=== PATIENT | female | born 1950 | race Caucasian/White ===

== ENCOUNTER 2025-10-09 07:18 | Day surgery (SDC) | payer MEDICARE, MEDICAID, SELFPAY ==
[2025-10-09] VITALS (8 sets, daily range): BP systolic 119–135; BP diastolic 58–101; PULSE 62–83; RESP 16; TEMP 36.4–37.1; O2SAT 97–98; BMI 38.9
--- OUTSIDE RECORDS SUMMARY | 2025-10-09 07:23 | XMS RPT_ITS | CCD ---
Author Organization [facility] Inform ion Partnership [facility] Care Team Providers Care Director Of Recruitment And Admissions Name Role Phone OFE , DR JULIAN Negron Primary Care Physician OFE , DR UJLIAN Negron Attending Unavailabl e OFE DO, DR JULIAN Negron Primary Care Unavailabl e Ofe DO, Julian Ferrell Primary Care Provider ADEEL GOLDSTEIN Referring Unavailable OFE, JULIAN FERRELL Primary Care Unavailable OFE, JULIAN FERRELL Primary Care Unavailable ANDREEA PARADA, DR ADHIKARI Attending Unavailabl e OFE DO, DR JULIAN Negron Primary Care Unavailabl e OFE DO, DR JULIAN Negron Primary Care Unavailabl e OFE DO, DR JULIAN Negron Attending [facility], [facility] Referring Unavailable [facility], [facility] Primary Care Unavailable Patricia Bridges Attending Unavailable Medications Current Medications Medication Drug Class(es) Dates Sig (Normalized) Sig (Original) cyclobenzaprine hydrochloride 10 mg oral tablet (2 sources) Muscle Relaxant Start: 12-06-2015 take 1 tablet by mouth every eight hours as needed cyclobenzaprine (FLEXERIL) 10 mg tablet Take 1 tablet by mouth three times daily as needed for Muscle Spasm. 20 tablet 0 12/06/2015 Active doxycycline monohydrate 100 mg oral tablet (1 source) Tetracycline-class Drug Start: 09-05-2024 End: 09-12-2024 take 1 tablet by mouth twice daily doxycycline monohydrate 100 mg tablet Indications: Sinobronchitis , Exposure to pneumonia Take 1 tablet by mouth two times a day for 7 days. 14 tablet 09/05/2024 09/12/2024 Active Eye Multivitamin (1 source) Start: 01-13-2025 Eye Multivitamin Oral, qDay, 0 Refill(s) Start Date: 01/13/25 Status: Ordered Repeat number: 1 ibuprofen 600 mg oral tablet (5 sources) Nonsteroidal Anti-inflammatory Drug Start: 12-31-2017 ibuprofen 600 mg oral tablet Dose : 600 mg = 1 tab(s), Oral, TID, PRN as needed for pain, # 30 tab(s), 0 Refill(s) Start Date: 12/31/17 Status: Ordered meloxicam 15 mg oral tablet (1 source) Nonsteroidal Anti-inflammatory Drug Start: 01-13-2025 meloxicam 15 mg oral tablet Dose : 15 mg = 1 tab(s), Oral, qDay, Take with food/milk, # 30 tab(s), 5 Refill(s), Pharmacy: [id number], Osteoarthritis of left knee, 153, cm, 01/13/25 14:02:00 EDT, Height, kg, 01/13/25 14:02:00 EDT, Dosing Weight Start Date: 01/13/25 Status: Ordered Quantity: 30.0 Unit: tab(s) Repeat number: 6 Indications: Unilateral primary osteoarthritis, left knee; Multivitamin preparation (5 sources) Start: 10-08-2020 take 1 tablet by mouth once daily Multivitamin Dose = 1 tab(s), Oral, Daily, 0 Refill(s) Start Date: 10/08/20 Status: Ordered ofloxacin 3 mg/ml ophthalmic solution (2 sources) Quinolone Antimicrobial Start: 08-23-2024 take 1 drop(s) into the eye(s) four times daily ofloxacin (OCUFLOX) 0.3 % ophthalmic solution Use 1 Drop in the left eye four times daily. 08/23/2024 Active omeprazole 40 mg delayed release oral capsule (7 sources) Proton Pump Inhibitor Start: 01-13-2025 omeprazole 40 mg oral delayed release capsule Dose : 40 mg = 1 cap(s), Oral, qDay, # 30 cap(s), 5 Refill(s), Pharmacy: [id number], GERD (gastroesophageal reflux disease), 153, cm, 01/13/25 14:02:00 EDT, Height, kg, 01/13/25 14:02:00 EDT, Dosing Weight Start Date: 01/13/25 Status: Ordered Quantity: 30.0 Unit: cap(s) Repeat number: 6 Indications: Gastro-esophageal reflux disease without esophagitis; Start: 10-12-2022 omeprazole 20 mg oral delayed release capsule Dose : 20 mg = 1 cap(s), Oral, qDay, # 30 cap(s), 11 Refill(s), [facility]acy: [id number], 155, cm, 10/12/22 8:33:00 EST, Height, kg, 10/12/22 8:33:00 EST, Dosing Weight Start Date: 10/12/22 Status: Ordered Start: 04-14-2021 omeprazole 20 mg oral delayed release capsule Dose : 20 mg = 1 cap(s), Oral, qDay, # 30 cap(s), 11 Refill(s), Pharmacy: [id number], 156, cm, 04/14/21 14:47:00 EDT, Height, kg, 04/14/21 14:47:00 EDT, Dosing Weight Start Date: 04/14/21 Status: Ordered take 1 capsule by mo [facility] once daily Omeprazole 40 mg capsule Take 40 mg by mouth once daily. Active oxybutynin chloride 5 mg oral tablet (3 sources) Cholinergic Muscarinic Antagonist Start: 01-13-2025 oxybutynin 5 mg or al tablet Dose : 5 mg = 1 tab(s), Oral, Daily, # 30 tab(s), 5 Refill(s), Pharmacy: [id number], Urinary incontinence, mixed, 153, cm, 01/13/25 14:02:00 EDT, Height, kg, 01/13/25 14:02:00 EDT, Dosing Weight Start Date: 01/13/25 Status: Ordered Quantity: 30.0 Unit: tab(s) Repeat number: 6 Indications: Mixed incontinence; Start: 08-10-2024 take 1 tablet by jose once daily oxybutynin (DITROPAN) 5 mg tablet Take 5 mg by mouth once daily. 08/10/2024 Active Completed/Discontinued Medications Medication Drug Class(es) Dates Sig (Normalized) Sig (Original) [id number] 200 actuat albuterol 0.09 mg/actuat metered dose inhaler (1 source) beta2-Adrenergic Agonist Start: 07-09-2015 End: 09-05-2024 take 2 puff(s) by inhalation every four hours as needed for wheezing albuterol HFA (PROAIR HFA) 90 mcg/actuation inhaler Inhale 2 Puffs as instructed every 4 hours as needed for Wheezing/Shortness of Breath. 1 Inhaler 3 07/09/2015 09/05/2024 Discontinued (Other) Beclomethasone (1 source) Corticosteroid Start: 07-09-2015 End: 09-05-2024 take 2 puff(s) by inhalation twice daily beclomethasone (QVAR) 40 mcg/actuation inhaler Inhale 2 Puffs as instructed twice daily. 1 Inhaler 2 07/09/2015 09/05/2024 Discontinued (Other) fluticasone proprionate NASAL 50 mcg/ spray (1 source) Start: 04-14-2021 End: 08-12-2021 take 1 dose nasal route once daily fluticasone proprionate NASAL 50 mcg/ spray Dose = 1 spray(s), Nostril, each, qDay, # 16 gram(s), 3 Refill(s), Pharmacy: [facility], 156, cm, 04/14/21 14:47:00 EDT, Height, kg, 04/14/21 14:47:00 EDT, Dosing Weight Start Date: 04/14/21 Stop Date: 08/12/21 Status: Ordered Problems Problem Classification Problem Date Documented Date Episodic/Chronic Diabetes mellitus without complication (6 sources) Hyperglycemia 03-02-2020 Episodic Disorders of lipid metabolism (6 sources) Pure hypercholesterolemia 03-02-2020 Chroni c Esophageal disorders (7 sources) Gastroesophageal reflux disease; Translations: [Gastro-esophageal reflux disease without esophagitis] Onset: 09-05-2002-14-2020 Chronic Genitourinary symptoms and ill-defined conditions (6 sources) Mixed urinary incontinence 09-03-2020 Chronic Immunizations and screening for infectious disease (1 source) Contact with and (suspected) exposure to other communicable diseases; Translations: [Contact with or exposure to other communicable diseases] 09-05-2024 Episodic Nausea and vomiting (1 source) Nausea with vomiting, unspecified; Translations: [Nausea with vomiting, unspecified] Onset: 09-05-20 Episodic Osteoarthritis (1 source) Osteoarthritis of left knee joint 07-10-2024 Chronic Other circulatory disease (1 source) Wheeze - rhonchi; Translations: [Other specified symptoms and signs involving the circulatory and respiratory systems] 09-05-2024 Episodic Other gastrointestinal disorders (1 source) Abdominal distension (gaseous); Translations: [Abdominal distension (gaseous)] Onset: 09-05-20 Episodic Other lower respiratory disease (3 sources) Restrictive lung disease 11-16-2022 Episodi c Other nutritional; endocrine; and metabolic disorders (3 sources) Body mass index 40+ - severely obese; Translations: [Morbid (severe) obesity due to excess calories] Onset: 06-16-2011-01-2021 Chronic Other nutritional; endocrine; and metabolic disorders (1 source) Morbid obesity 07-10-2024 Chronic Other upper respiratory infections (1 source) Chronic sinusitis; Translations: [Chronic sinusitis, unspecified] 09-05-2024 Chronic Residual codes; unclassified (1 source) Early satiety; Translations: [Early satiety] Onset: 09-05-20 Episodic Results Test Name Value Interpretation Reference Range Facility Gastroenterology Visit Repor ton 09-05-2025 Gastroenterology Visit Report [facility] [address] [place] [address] OFFICE VISIT Date of Service: 09/05/25 MR#: [id number] Acct: [id number] Name: SHA MITCHELL Rep #: [id number] : 1950 Provider: ZAINAB De Jesus Age/Sex: 74/F Location: [facility] Status: Signed Intake Vital Signs 11/29/16 12:55 Height 5 ft 1 in Intake Visit Reasons: Gastroesophageal reflux disease (GERD) Chief Complaint: GERD Allergies No Known Allergies Allergy (Verified 09/05/25 10:23) Medications ???Medication ???Instructions ???Recorded ???Confirmed ???Type meloxicam 15 mg tablet 15 mg PO QDAY 08/07/25 09/05/25 Hi story omeprazole 40 mg capsule,delayed 40 mg PO QDAY 08/07/25 09/05/25 Hi story release Have you fallen in the past year?: No PFSH Medical History Urinary incontinence, mixed Former smoker Osteoarthritis of left knee Morbid obesity Restrictive lung disease GERD (gastroesophageal reflux disease) Family History Maternal Grandmother Diabetes Father Heart disease Social History Smoking Status: Former smoker quit date: 03/02/20 HPI HPI Chief Complaint: GERD Details: SHA MITCHELL, is a 74 F who presents to the office today for establishment. Patient referred from her primary care provider due to worsening GERD symptoms over the past month. Patient has a long history of GERD and reflux and has been on omeprazole for over 10 years. Last EGD was over 10 years ago. Over the past month she has had heartburn after eating and nausea in the mornings. She is vomiting at least once per week. She has epigastric pain, early satiety and bloating. Over the last 6 months due to lack of appetite she has lost about 20 pounds without trying. Patient recently discontinued meloxicam after being on it for a year due to joint pain. She denies black or tarry stool. No past medical history of GI bleeding. She denies any recent changes in her bowel habits. When she was taking oxybutynin for urinary incontinence she was more constipated but this has resolved. Last colonoscopy was over 10 years ago at the [facility]. She denies family history of colon cancer. She did a Cologuard test about a month ago which was negative. ROS Const Constitutional: No fatigue, fever(s) or weight change ENT ENT: No difficulty swallowing Gastro GI: Positive for bloating, change in bowel habits, heartburn, excessive flatus and nausea/dyspepsia; No abdominal pain, belching, change in stool character, coffee ground emesis, constipation, cramping, diarrhea, difficulty swallowing, feeling full early, incontinent of stools, Vomiting blood/hematemesis, Blood in stool, loose stools, Black,tarry stools, pain with swallowing, vomiting or other Musc Musculoskeletal: Positive for joint pain, Arthritis, sciatica and leg pain at night Skin Skin: No yellowing of the eye or itchy eyes Psych Psychiatric: No anxiety and No depression Endo Endocrine: No fatigue or weight change Aller/Imm Allergy/Immunologic: No itchy eyes Eb/Lymp Hematologic/Lymphatic: No easy bleeding or easy bruising Exam Const General: cooperative, healthy appearing and comfortable Nutritional Appearance: overweight Orientation: alert HENMT Head: normal to inspection Eyes General: appearance normal, both eyes and all related structures Neck Neck: normal visual inspection Chest Chest palpation inspection: normal inspection of the chest Resp Effort Inspection: normal respiratory effort Cardio Rate: regular rate Rhythm: regular rhythm GI Inspection: normal to inspection Auscultation: normal bowel sounds Palpation: soft and nontender Assessment and Plan Assessment and Plan (1) Gastroesophageal reflux disease: Plan: Sha is a 74-year-old female patient with past medical history of restrictive lung disease (silicosis), joint pain, urinary incontinence and GERD here today for evaluation. Patient with GERD for over 10 years but worsening over the past month. She is now having epigastric pain, nausea, vomiting, early satiety and bloating. Patient endorses a 20 pound weight loss unintentionally over the past 6 months due to lack of appetite.She recently discontinued meloxicam after being on it for a year therefore gastric ulcer is on the differential. Patient will undergo upper endoscopy for evaluation of her GI tract. In the interim she will continue omeprazole 40 mg daily. Pending result we will consider further workup or treatment. - EGD - Continue PPI - Follow-up after procedure Note: Portions of this note may have been selectively carried forward from previous documentation to ensure continuity and accurac (more content not included)... Normal [facility] XR ANKLE AND FOOT 6 VIEWS [facility] 04-18-2025 XR ANKLE AND FOOT 6 VIEWS RIGHT ORIGINAL EXAMINATION: 3 XRAY VIEWS OF THE RIGHT FOOT AND ANKLE 04/17/2025 4:22 pm COMPARISON: None. HISTORY: ORDERING SYSTEM PROVIDED HISTORY: Reason for Exam: Tendon dysfunction right FINDINGS: AP oblique and lateral views of the right foot and ankle obtained. Prominent spurring affects the calcaneal origin of the plantar aponeurosis and insertion of the Achilles tendon. Ankle mortise is smooth in contour. Skeletal elements of the foot reveal hallux varus deformity and moderate degenerative disease of the 1st metatarsophalangeal joint. There is no acute fracture or significant soft tissue swelling. No radiopaque foreign body is seen. IMPRESSION: 1. 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 2. No acute fracture. Interpreted by: Steffen Stone DO Preliminary Report By: Steffen Stone DO Electronically signed By Steffen Stone DO Dictated Date: 04/18/2025 8:24:49 AM Prelim Date: 04/18/2025 8:30:05 AM Sign Date: 04/18/2025 8:30:05 AM Ordering Provider: ZEYNEP DORAN [facility] .GFRon 01-09-2025 Estimated Glomerular Filtration Rate 61 ml/min/1.73sqm [facility] Comment on above: Result Comment: Stages of Chronic Kidney Disease (CKD) Stage Description eGFR(ml/min/1.73 sq.m.) CKD 1 Normal kidney function or >=90 normal kindney function with possible kidney damage (ex. Proteinuria) CKD 2 Kidney damage with mild loss 60-89 of kidney function CKD 3a Mild to moderate loss of kidney 45-59 function CKD 3b Moderate to severe loss of 30-44 of kindey function CKD 4 Severe loss of kidney function 15-29 CKD 5 Kidney failure <15 Note: (go live 2024) the eGFR calculation was updated to the 2020 CKD-EPI creatinine equation without a race factor to calculate the eGFR results. Performed By: #### G FR, LIPID, CMP, A1C #### [id number] [place], [place] [address] A1Con 01-09-2025 Glucose [Mass/Vol] 117 mg/dL Normal [facility] Comment on above: Result Comment: Malika mated Average Glucose calculated by equation ((28.7xA1C)-46.7) Estimated average glucose (eAG) is a calculated value from Hemoglobin A1C and is passenger representative of the average blood glucose level in the last 2-3 month period. Normal range: less than 114 mg/dL Performed By: #### G FR, LIPID, CMP, A1C #### [facility] [address] [place], [place] [address] HbA1c (Bld) [Mass fraction] 5.7 % Normal 4.3-6.4 [facility] Comment on above: Performed By: #### G FR, LIPID, CMP, A1C #### [facility] [address] [place], [place] [address] CMPon 01-09-2025 Albumin Level 3.7 G/dL Normal 3.4-4.8 [facility] Comment on above: Performed By: #### G FR, LIPID, CMP, A1C #### [place] [id number] Albumin/Globulin [Mass ratio] 1.0 {ratio} Low 1.1-2.5 [facility] Comment on above: Performed By: #### G FR, LIPID, CMP, A1C #### [place] [id number] ALP [Catalytic activity/Vol] 110 U/L Normal 40-135 [facility] Comment on above: Performed By: #### G FR, LIPID, CMP, A1C #### [place] [address] ALT [Catalytic activity/Vol] 19 U/L Normal 14-59 [facility] Comment on above: Performed By: #### G FR, LIPID, CMP, A1C #### [place] [address] AST [Catalytic activity/Vol] 20 U/L Normal 10-40 [facility] Comment on above: Performed By: #### G FR, LIPID, CMP, A1C #### [place] [address] Bili Total 0.5 mg/dL Normal 0.2-1.0 [facility] Comment on above: Result Comment: Use of this assay is not recommended for patients undergoing treatment with eltrombopag due to the potential for falsely elevated results. Performed By: #### G FR, LIPID, CMP, A1C #### [place] [id number] BUN/Creatinine Ratio 19 ratio Normal 7-27 [facility] Comment on above: Performed By: #### G FR, LIPID, CMP, A1C #### [place] [id number] Calcium [Mass/Vol] 9.4 mg/dL Normal 8.4-10.2 [facility] Comment on above: Performed By: #### G FR, LIPID, CMP, A1C #### [place] [address] Chloride [Moles/Vol] 102 mmol/L Normal 98-107 [facility] Comment on above: Performed By: #### G FR, LIPID, CMP, A1C #### [address] [address] CO2 [Moles/Vol] 27 mmol/L Normal 23-31 [facility] Comment on above: Performed By: #### G FR, LIPID, CMP, A1C #### [address] [address] Creatinine [Mass/Vol] 0.97 mg/dL Normal 0.55-1.02 [facility] Comment on above: Result Comment: Test ing performed on Siemens Dimension EXL analyzer using a modified kinetic Narciso technique. Performed By: #### G FR, LIPID, CMP, A1C #### [address] [address] Electrolyte Balance 9.0 mEq/L Normal 4.0-15.0 [facility] Comment on above: Performed By: #### G FR, LIPID, CMP, A1C #### [address] [address] Globulin 3.6 G/dL Normal 1.5-3.8 [facility] Comment on above: Performed By: #### G FR, LIPID, CMP, A1C #### [address] [address] Glucose [Mass/Vol] 93 mg/dL Normal 83-110 [facility] Comment on above: Performed By: #### G FR, LIPID, CMP, A1C #### [address] [address] Potassium [Moles/Vol] 4.2 mmol/L Normal 3.5-5.1 [facility] Comment on above: Performed By: #### G FR, LIPID, CMP, A1C #### [address] [address] Sodium [Moles/Vol] 138 mmol/L Normal 136-145 [facility] Comment on above: Performed By: #### G FR, LIPID, CMP, A1C #### [address] [address] Total Protein 7.3 G/dL Normal 6.4-8.2 [facility] Comment on above: Performed By: #### G FR, LIPID, CMP, A1C #### [address] [address] Urea nitrogen [Mass/Vol] 18 mg/dL Normal 7-18 [facility] Comment on above: Performed By: #### G FR, LIPID, CMP, A1C #### [address] [address] LIPIDon 01-09-2025 Cholesterol [Mass/Vol] 267 mg/dL High 0-200 [facility] Comment on above: Result Comment: Chol esterol Reference Interval: Less than 200 Desirable 200-239 Borderline high risk 240 and above High risk Performed By: #### G FR, LIPID, CMP, A1C #### [address] [address] Cholesterol in HDL [Mass/Vol] 76 mg/dL High 40-60 [facility] Comment on above: Performed By: #### G FR, LIPID, CMP, A1C #### [address] [address] Cholesterol in LDL [Mass/Vol] 166 mg/dL High 0-130 [facility] Comment on above: Performed By: #### G FR, LIPID, CMP, A1C #### [address] [address] Triglyceride [Mass/Vol] 125 mg/dL Normal 0-150 [facility] Comment on above: Result Comment: Trig lyceride Reference Interval: Less than 150 Normal 150-199 Borderline high risk 200-499 High risk 500 or higher Very high risk Performed By: #### G FR, LIPID, CMP, A1C #### [address] [address] CNOVon 09-05-2024 CNOV Office Visit (UCWSTR ) SHA MITCHELL ([id number]) 1950 F Date Time Provider Department 09/05/24 10:30 AM ADEEL GOLDSTEIN WS During your visit today, we recorded the following information about you: Temperature Pulse Respiration Blood pressure 98.3 degrees 67/minute 20/minute 161/90 Weight 96.6 kg Adeel Goldstein APRN.PULP BLEACHER 09/05/2024 11:52 AM Signed Subjective HPI HPI Sha Mitchell is a 73 year old female who presents today for CC of cough, fever, congestion, body aches. This started 4 days ago. Has tried otc medication for relief. Symptoms are worsened by nothing. Risk factors sick exposures at home/pneumonia. .Patient presents with: Cough: Chest congestion, fever, chills, bodyaches, head and sinus pain, chest pressure and pain x 4 days PAST MEDICAL HISTORY Diagnosis Date Anxiety Arthritis knees Bronchitis Depression Heartburn Morbid obesity with BMI of 40.0-44.9, adult ([facility]) 06/16/2015 06/08/15 BMI: 44.43. Snoring Ulcer stomach PAST SURGICAL HISTORY Procedure Laterality Date COLONOSCOPY FLX DX W/COLLJ SPEC WHEN PFRMD 05/07/15 Colonoscopy ALLERGIES Patient has no known allergies. MEDICATIONS ofloxacin (OCUFLOX) 0.3 % ophthalmic solution Use 1 Drop in the left eye four times daily. oxybutynin (DITROPAN) 5 mg tablet Take 5 mg by mouth once daily. cyclobenzaprine (FLEXERIL) 10 mg tablet Take 1 tablet by mouth three times daily as needed for Muscle Spasm. Omeprazole 40 mg capsule Take 40 mg by mouth once daily. FAMILY HISTORY Problem Relation Age of Onset Heart Father angina Diabetes Maternal Grandmother Hypertension Father Arthritis Mother knees Social History Tobacco Use Smoking status: Former Current packs/day: 0.00 Average packs/day: 0.2 packs/day for 30.6 years (6.1 ttl pk-yrs) Types: Cigarettes Start date: 1969 Quit date: 06/08/2000 Years since quittin.2 Smokeless tobacco: Never Tobacco comments: Father smoked in childhood home until patient's age 3. Has shared home with many smokers in adulthood. Substance Use Topics Alcohol use: No Comment: Quit about 1999. Drug use: No Comment: Prior Pot smoker 20 years, quit 1999. Review of Systems Constitutional: Positive for chills, fever and malaise/fatigue. HENT: Positive for congestion, ear pain and sore throat. Negative for nosebleeds. Respiratory: Positive for cough. Negative for shortness of breath and wheezing. Cardiovascular: Negative for chest pain. Musculoskeletal: Negative for neck pain. Skin: Negative for itching and rash. Objective Blood pressure 161/90, pulse 67, temperature 36.8 ?C (98.3 ?F), resp. rate 20, weight 96.6 kg (212 lb 15.4 oz), SpO2 97%. Physical Exam Constitutional: General: She is not in acute distress. Appearance: She is not toxic-appearing or diaphoretic. HENT: Head: Normocephalic and atraumatic. Right Ear: Hearing, tympanic membrane, ear canal and external ear normal. Left Ear: Hearing, tympanic membrane, ear canal and external ear normal. Nose: Nose normal. Mouth/Throat: Lips: [place]. Mouth: Mucous membranes are moist. Eyes: General: Lids are normal. No scleral icterus. Right eye: No discharge. Left eye: No discharge. Conjunctiva/sclera: Conjunctivae normal. Pupils: Pupils are equal, round, and reactive to light. Neck: Trachea: Trachea normal. Cardiovascular: Rate and Rhythm: Normal rate and regular rhythm. Heart sounds: Normal heart sounds. Pulmonary: Effort: Pulmonary effort is normal. Breath sounds: Examination of the left-lower field reveals rhonchi. Rhonchi present. No decreased breath sounds, wheezing or rales. Musculoskeletal: Cervical back: Normal range of motion and neck supple. Lymphadenopathy: Cervical: No cervical adenopathy. Right cervical: No superficial cervical adenopathy. Left cervical: No superficial cervical adenopathy. Skin: Findings: No rash. Neurological: Mental Status: She is alert and oriented to person, place, and time. ASSESSMENT/PLAN: 1. Sinobronchitis - ICD9: 473.9, 490, ICD10: J32.9, J40 (primary diagnosis) - Will begin treatment with as per antibiotic as written, see orders - Supportive care with plenty of fluids, rest, and analgesia prn. - Follow up in 3-5 days if symptoms persist or worsen. - DOXYCYCLINE MONOHYDRATE 100 MG TABLET 2. Rhonchi - ICD9: 786.7, ICD10: R09.89 - XR CHEST 2V FRONTAL/LAT 3. Exposure to pneumonia - ICD9: V01.89, ICD10: Z20.89 - DOXYCYCLINE MONOHYDRATE 100 MG TABLET IMPRESSION: No acute radiographic abnormality. Dictated by : MD Adeel BLAKE, [place].PULP BLEACHER Allergies As of Date: 09/05/2024 (No Known Allergies) Date Reviewed: 09/05/2024 Reviewed by: Jami Garcia LPN - Fully Assessed Reason for Visit: Cough [28] Cmt: Chest congestion, fever, chills, bodyaches, head and sinus pain, chest pressure and pain x (more content not included)... Normal [facility] XR CHEST 2V FRONTAL/LATon XR CHEST 2V FRONTAL/LAT * * *Final Report* * * DATE OF EXAM: Sep 05 2024 11:11AM WOX [id number] - XR CHEST 2V FRONTAL/LAT / PROCEDURE REASON: Rhonchi * * * * Physician Interpretation * * * * EXAMINATION: CHEST RADIOGRAPH (2 VIEW FRONTAL and LATERAL) CLINICAL HISTORY: Rhonchi MQ: XC2_6 EXAM DATE/TIME: 09/05/2024 11:11 AM COMPARISON: Chest x-ray of 06/08/2015 RESULT: Lines, tubes, and devices: None. Lungs and pleura: No consolidation. No lung mass. No pleural effusion. No pneumothorax. Cardiomediastinal silhouette: Normal cardiomediastinal silhouette. Bones and soft tissues: Multilevel degenerative changes of the thoracic spine with no acute process seen. IMPRESSION: No acute radiographic abnormality. Alcohol Still Operator: PSCB Transcribe Date/Time: Sep 05 2024 11:16A Dictated by : ASYA HAYES MD This examination was interpreted and the report reviewed and electronically signed by: ASYA HAYES MD on Sep 05 2024 11:18AM EST [id number] Normal [facility] XR Chest PA and Lateralon IMPRESSION: No acute radiographic abnormality. Alcohol Still Operator: MALDONADO Transcribe Date/Time: Sep 05 2024 11:16A Dictated by : ASYA HAYES MD This examination was interpreted and the report reviewed and electronically signed by: ASYA HAYES MD on Sep 05 2024 11:18AM [facility] DIVISION OF RADIOLOGY * * *Final Report* * * DATE OF EXAM: Sep 05 2024 11:11AM WOX [id number] - XR CHEST 2V FRONTAL/LAT / PROCEDURE REASON: Rhonchi * * * * Physician Interpretation * * * * EXAMINATION: CHEST RADIOGRAPH (2 VIEW FRONTAL & LATERAL) CLINICAL HISTORY: Rhonchi MQ: XC2_6 EXAM DATE/TIME: 09/05/2024 11:11 AM COMPARISON: Chest x-ray of 06/08/2015 RESULT: Lines, tubes, and devices: None. Lungs and pleura: No consolidation. No lung mass. No pleural effusion. No pneumothorax. Cardiomediastinal silhouette: Normal cardiomediastinal silhouette. Bones and soft tissues: Multilevel degenerative changes of the thoracic spine with no acute process seen. DIVISION OF RADIOLOGY Provider, [facility] - 09/05/2024 * * *Final Report* * * DATE OF EXAM: Sep 05 2024 11:11AM WOX [id number] - XR CHEST 2V FRONTAL/LAT / PROCEDURE REASON: Rhonchi * * * * Physician Interpretation * * * * EXAMINATION: CHEST RADIOGRAPH (2 VIEW FRONTAL & LATERAL) CLINICAL HISTORY: Rhonchi MQ: XC2_6 EXAM DATE/TIME: 09/05/2024 11:11 AM COMPARISON: Chest x-ray of 06/08/2015 RESULT: Lines, tubes, and devices: None. Lungs and pleura: No consolidation. No lung mass. No pleural effusion. No pneumothorax. Cardiomediastinal silhouette: Normal cardiomediastinal silhouette. Bones and soft tissues: Multilevel degenerative changes of the thoracic spine with no acute process seen. IMPRESSION IMPRESSION: No acute radiographic abnormality. Alcohol Still Operator: MALDONADO Transcribe Date/Time: Sep 05 2024 11:16A Dictated by : ASYA HAYES MD This examination was interpreted and the report reviewed and electronically signed by: ASYA HAYES MD on Sep 05 2024 11:18AM EST [facility] Radiology Study observation (narrative) [facility] XR Chest PA and LateralOrder ed By: Ccf Provider on 09-05-2024 [facility] .GFRon 04-08-2024 GFR 74 ml/min/1.73sqm Normal [facility] ([place]) Comment on above: Result Comment: GFR Population mean for , Non- Americans Ages 20-29 = 116 mL/min/1.73 sq.m. Ages 30-39 = 107 mL/min/1.73 sq.m. Ages 40-49 = 99 mL/min/1.73 sq.m. Ages 50-59 = 93 mL/min/1.73 sq.m. Ages 60-69 = 85 mL/min/1.73 sq.m. Ages 70+ = 75 mL/min/1.73 sq.m. Chronic Kidney Disease: Less than 60 mL/min/1.73 square meters End Stage Renal Disease: Less than 15 mL/min/1.73 square meters Performed By: #### A 1C, CMP, LIPID, GFR #### Aniyah [address] [address] GFR Non- 61 ml/min/1.73sqm Normal [facility] ([place]) Comment on above: Result Comment: GFR Population mean for , Non- Americans Ages 20-29 = 116 mL/min/1.73 sq.m. Ages 30-39 = 107 mL/min/1.73 sq.m. Ages 40-49 = 99 mL/min/1.73 sq.m. Ages 50-59 = 93 mL/min/1.73 sq.m. Ages 60-69 = 85 mL/min/1.73 sq.m. Ages 70+ = 75 mL/min/1.73 sq.m. Chronic Kidney Disease: Less than 60 mL/min/1.73 square meters End Stage Renal Disease: Less than 15 mL/min/1.73 square meters Performed By: #### A 1C, CMP, LIPID, GFR #### Aniyah [address] [place], [place] [address] A1Con 04-08-2024 HbA1c (Bld) [Mass fraction] 5.8 % Normal 4.3-6.4 [facility]) Comment on above: Order Comment: obtai n prior to medicare wellness 2023 Performed By: #### A 1C, CMP, LIPID, GFR #### [address] [address] CMPon 04-08-2024 Albumin Level 3.7 G/dL Normal 3.4-4.8 [facility]) Comment on above: Performed By: #### A 1C, CMP, LIPID, GFR #### [address] [address] Albumin/Globulin [Mass ratio] 1.1 {ratio} Normal 1.1-2.5 [facility]) Comment on above: Performed By: #### A 1C, CMP, LIPID, GFR #### [address] [address] ALP [Catalytic activity/Vol] 110 U/L Normal 40-135 [facility]) Comment on above: Performed By: #### A 1C, CMP, LIPID, GFR #### [address] [address] ALT [Catalytic activity/Vol] 24 U/L Normal 14-59 [facility]) Comment on above: Performed By: #### A 1C, CMP, LIPID, GFR #### [address] [address] AST [Catalytic activity/Vol] 18 U/L Normal 10-40 [facility]) Comment on above: Performed By: #### A 1C, CMP, LIPID, GFR #### [address] [address] Bili Total 0.6 mg/dL Normal 0.2-1.0 [facility]) Comment on above: Result Comment: Use of this assay is not recommended for patients undergoing treatment with eltrombopag due to the potential for falsely elevated results. Performed By: #### A 1C, CMP, LIPID, GFR #### [address] [address] BUN/Creatinine Ratio 19 ratio Normal 7-27 [facility] ([place]) Comment on above: Performed By: #### A 1C, CMP, LIPID, GFR #### [address] [address] Calcium [Mass/Vol] 8.7 mg/dL Normal 8.4-10.2 [facility] ([place]) Comment on above: Performed By: #### A 1C, CMP, LIPID, GFR #### [address] [address] Chloride [Moles/Vol] 105 mmol/L Normal 98-107 [facility] ([place]) Comment on above: Performed By: #### A 1C, CMP, LIPID, GFR #### [address] [address] CO2 [Moles/Vol] 29 mmol/L Normal 23-31 [facility] ([place]) Comment on above: Performed By: #### A 1C, CMP, LIPID, GFR #### [address] [address] Creatinine [Mass/Vol] 0.90 mg/dL Normal 0.55-1.02 [facility] ([place]) Comment on above: Performed By: #### A 1C, CMP, LIPID, GFR #### [address] [address] Electrolyte Balance 9.0 mEq/L Normal 4.0-15.0 [facility] ([place]) Comment on above: Performed By: #### A 1C, CMP, LIPID, GFR #### [address] [address] Globulin 3.3 G/dL Normal [facility] ([place]) Comment on above: Performed By: #### A 1C, CMP, LIPID, GFR #### [address] [address] Glucose [Mass/Vol] 99 mg/dL Normal 83-110 [facility] ([place]) Comment on above: Performed By: #### A 1C, CMP, LIPID, GFR #### [address] [address] Potassium [Moles/Vol] 4.6 mmol/L Normal 3.5-5.1 [facility] ([place]) Comment on above: Performed By: #### A 1C, CMP, LIPID, GFR #### [address] [place], [place] [address] Sodium [Moles/Vol] 143 mmol/L Normal 136-145 [facility] ([place]) Comment on above: Performed By: #### A 1C, CMP, LIPID, GFR #### [address] [place], [place] [address] Total Protein 7.0 G/dL Normal 6.4-8.2 [facility] ([place]) Comment on above: Performed By: #### A 1C, CMP, LIPID, GFR #### [address] [address] Urea nitrogen [Mass/Vol] 17 mg/dL Normal 7-18 [facility] ([place]) Comment on above: Performed By: #### A 1C, CMP, LIPID, GFR #### [address] [address] LABORATORYOrdered By: SYSTEM SYSTEM on 04-08-2024 Albumin BCP dye [Mass/Vol] 3.7 G/dL Normal 3.4 - 4.8 G/dL AO ADM SS Albumin/Globulin [Mass ratio] 1.1 {ratio} Normal 1.1 - 2.5 ratio AO ADM SS ALP [Catalytic activity/Vol] 110 U/L Normal 40 - 135 U/L AO ADM SS ALT With P-5'-P [Catalytic activity/Vol] 24 U/L Normal 14 - 59 U/L AO ADM SS AST With P-5'-P [Catalytic activity/Vol] 18 U/L Normal 10 - 40 U/L AO ADM SS Bilirubin [Mass/Vol] 0.6 mg/dL Normal 0.2 - 1 .0 mg/dL AO ADM SS Comment on above: Interpretive Data: U se of this assay is not recommended for patients undergoing treatment with eltrombopag due to the potential for falsely elevated results. Calcium [Mass/Vol] 8.7 mg/dL Normal 8.4 - 10. 2 mg/dL AO ADM SS Chloride [Moles/Vol] 105 mmol/L Normal 98 - 10 7 mmol/L AO ADM SS CO2 [Moles/Vol] 29 mmol/L Normal 23 - 31 mmol/L AO ADM SS Creatinine [Mass/Vol] 0.90 mg/dL Normal 0.55 - 1.02 mg/dL AO ADM SS Electrolyte Balance 9.0 mEq/L Normal 4.0 - 15 .0 mEq/L AO ADM SS GFR/1.73 sq M.predicted among blacks MDRD (S/P/Bld) [Vol rate/Area] 74 ml/min/1.73sqm Invalid Interpretation Code AO Chemistry S Comment on above: Interpretive Data: GFR Population mean for , Non- Americans Ages 20-29 = 116 mL/min/1.73 sq.m. Ages 30-39 = 107 mL/min/1.73 sq.m. Ages 40-49 = 99 mL/min/1.73 sq.m. Ages 50-59 = 93 mL/min/1.73 sq.m. Ages 60-69 = 85 mL/min/1.73 sq.m. Ages 70+ = 75 mL/min/1.73 sq.m. Chronic Kidney Disease: Less than 60 mL/min/1.73 square meters End Stage Renal Disease: Less than 15 mL/min/1.73 square meters GFR/1.73 sq M.predicted among non-blacks MDRD (S/P/Bld) [Vol rate/Area] 61 ml/min/1.73sqm Invalid Interpretation Code AO Chemistry S Comment on above: Interpretive Data: GFR Population mean for , Non- Americans Ages 20-29 = 116 mL/min/1.73 sq.m. Ages 30-39 = 107 mL/min/1.73 sq.m. Ages 40-49 = 99 mL/min/1.73 sq.m. Ages 50-59 = 93 mL/min/1.73 sq.m. Ages 60-69 = 85 mL/min/1.73 sq.m. Ages 70+ = 75 mL/min/1.73 sq.m. Chronic Kidney Disease: Less than 60 mL/min/1.73 square meters End Stage Renal Disease: Less than 15 mL/min/1.73 square meters Globulin 3.3 G/dL Invalid Interpretation Code AO ADM SS Glucose [Mass/Vol] 99 mg/dL Normal 83 - 110 mg/dL AO ADM SS HbA1c (Bld) [Mass fraction] 5.8 % Normal 4.3 - 6.4 % AO ADM SS Potassium [Moles/Vol] 4.6 mmol/L Normal 3.5 - 5.1 mmol/L AO ADM SS Protein [Mass/Vol] 7.0 G/dL Normal 6.4 - 8.2 G/dL AO ADM SS Sodium [Moles/Vol] 143 mmol/L Normal 136 - 145 mmol/L AO ADM SS Urea nitrogen [Mass/Vol] 17 mg/dL Normal 7 - 18 mg/dL AO ADM SS Urea nitrogen/Creatinine [Mass ratio] 19 ratio Normal 7 - 27 ratio AO ADM SS LABORATORYOrdered By: Evette Schaefer on 04-08-2024 Cholesterol [Mass/Vol] 255 mg/dL High 0 - 200 mg/dL AO ADM SS Comment on above: Interpretive Data: C holesterol Reference Interval: Less than 200 Desirable 200-239 Borderline high risk 240 and above High risk Cholesterol in HDL [Mass/Vol] 66 mg/dL High 40 - 60 mg/dL AO ADM SS Cholesterol in LDL [Mass/Vol] 164 mg/dL High 0 - 130 mg/dL AO ADM SS Triglyceride [Mass/Vol] 125 mg/dL Normal 0 - 150 mg/dL AO ADM SS Comment on above: Interpretive Data: T riglyceride Reference Interval: Less than 150 Normal 150-199 Borderline high risk 200-499 High risk 500 or higher Very high risk LIPIDon 04-08-2024 Cholesterol [Mass/Vol] 255 mg/dL High 0-200 [facility] ([place]) Comment on above: Result Comment: Chol esterol Reference Interval: Less than 200 Desirable 200-239 Borderline high risk 240 and above High risk Performed By: #### A 1C, CMP, LIPID, GFR #### [address] [address] Cholesterol in HDL [Mass/Vol] 66 mg/dL High 40-60 [facility] ([place]) Comment on above: Performed By: #### A 1C, CMP, LIPID, GFR #### [address] [address] Cholesterol in LDL [Mass/Vol] 164 mg/dL High 0-130 [facility] ([place]) Comment on above: Performed By: #### A 1C, CMP, LIPID, GFR #### [address] [place], [place] [address] Triglyceride [Mass/Vol] 125 mg/dL Normal 0-150 [facility] ([place]) Comment on above: Result Comment: Trig lyceride Reference Interval: Less than 150 Normal 150-199 Borderline high risk 200-499 High risk 500 or higher Very high risk Performed By: #### A 1C, CMP, LIPID, GFR #### [address] [place], [place] [address] LABORATORYOrdered By: Herman Lau on 10-15-2021 Albumin BCP dye [Mass/Vol] 3.5 G/dL Invalid Interpretation Code 3.4 - 4.8 G/dL AO ADM SS Albumin/Globulin [Mass ratio] 1.0 {ratio} Invalid Interpretation Code 1.1 - 2.5 ratio AO ADM SS ALP [Catalytic activity/Vol] 111 U/L Invalid Interpretation Code 40 - 135 U/L AO ADM SS ALT With P-5'-P [Catalytic activity/Vol] 27 U/L Invalid Interpretation Code 14 - 59 U/L AO ADM SS AST With P-5'-P [Catalytic activity/Vol] 16 U/L Invalid Interpretation Code 10 - 40 U/L AO ADM SS Bilirubin [Mass/Vol] 0.4 mg/dL Invalid Interpretation Code 0.2 - 1.0 mg/dL AO ADM SS Calcium [Mass/Vol] 8.9 mg/dL Invalid Interpretation Code 8.4 - 10.2 mg/dL AO ADM SS Chloride [Moles/Vol] 105 mmol/L Invalid Interpretation Code 98 - 107 mmol/L AO ADM SS CO2 [Moles/Vol] 28 mmol/L Invalid Interpretation Code 23 - 31 mmol/L AO ADM SS Creatinine [Mass/Vol] 0.75 mg/dL Invalid Interpretation Code 0.55 - 1.02 mg/dL AO ADM SS Electrolyte Balance 10.0 mEq/L Invalid Interpretation Code AO ADM SS Globulin 3.4 G/dL Invalid Interpretation Code AO ADM SS Glucose [Mass/Vol] 102 mg/dL Invalid Interpretation Code 83 - 110 mg/dL AO ADM SS Potassium [Moles/Vol] 4.5 mmol/L Invalid Interpretation Code 3.5 - 5.1 mmol/L AO ADM SS Protein [Mass/Vol] 6.9 G/dL Invalid Interpretation Code 6.4 - 8.2 G/dL AO ADM SS Sodium [Moles/Vol] 143 mmol/L Invalid Interpretation Code 136 - 145 mmol/L AO ADM SS Urea nitrogen [Mass/Vol] 17 mg/dL Invalid Interpretation Code 7 - 18 mg/dL AO ADM SS Urea nitrogen/Creatinine [Mass ratio] 23 ratio Invalid Interpretation Code 7 - 27 ratio AO ADM SS LABORATORYOrdered By: Dianne Zamora on 10-15-2021 Cholesterol [Mass/Vol] 229 mg/dL Invalid Interpretation Code 0 - 200 mg/dL AO ADM SS Cholesterol in HDL [Mass/Vol] 69 mg/dL Invalid Interpretation Code 40 - 60 mg/dL AO ADM SS Cholesterol in LDL [Mass/Vol] 141 mg/dL Invalid Interpretation Code 0 - 130 mg/dL AO ADM SS HbA1c (Bld) [Mass fraction] 5.9 % Invalid Interpretation Code 4.3 - 6.4 % AO ADM SS Triglyceride [Mass/Vol] 95 mg/dL Invalid Interpretation Code 0 - 150 mg/dL AO ADM SS LABORATORYOrdered By: SYSTEM SYSTEM on 10-15-2021 GFR 92 ml/min/1.73sqm Invalid Interpretation Code AO Chemistry S GFR Non- 76 ml/min/1.73sqm Invalid Interpretation Code AO Chemistry S Vital Signs Date Time Vital Sign Value Performing Clinician Alivia coulter 09-05-2024 10:38-0400 Body mass index (BMI) [Ratio] 40.24 kg/m2 Adeel Goldstein APRN.PULP BLEACHER Work Phone: [facility] 09-05-2024 10:38-0400 Body temperature 98.29 [degF] Adeel Goldstein APRN.PULP BLEACHER Work Phone: [facility] 09-05-2024 10:38-0400 Body weight 96.6 kg Adeel Goldstein APRN.PULP BLEACHER Work Phone: [facility] 09-05-2024 10:38-0400 Diastolic blood pressure 90 mm[Hg] Adeel Goldstein APRN.PULP BLEACHER Work Phone: [facility] 09-05-2024 10:38-0400 Heart rate 67 /min Adeel Goldstein APRN.PULP BLEACHER Work Phone: [facility] 09-05-2024 10:38-0400 Respiratory rate 20 /min Adeel Goldstein CUPOLA LINER.PULP BLEACHER Work Phone: [facility] 09-05-2024 10:38-0400 SaO2% (BldA) [Mass fraction] 97 % Adeel Goldstein CUPOLA LINER.PULP BLEACHER Work Phone: [facility] 09-05-2024 10:38-0400 Systolic blood pressure 161 mm[Hg] Adeel Goldstein CUPOLA LINER.PULP BLEACHER Work Phone: [facility] Encounters Encounter Date Encounter Type Care Provider Facility Start: 09-05-2025 End: 09-05-2025 ambulatory [facility] Facility:[facility] Start: 04-17-2025 End: 04-17-[address] ZEYNEP DORAN DPM Facility:[facility] Start: 04-17-2025 End: 04-17-[address] ZEYNEP DORAN DPM [facility] Start: 01-09-2025 End: 01-09-[address] JULIAN THAKUR DO Facility:[facility] Start: 09-05-2024 End: 09-05-2024 Subsequent hospital visit by physician Xr [facility] Kathi Work Phone: Radiology Comment on above: Rhonchi [R09.89] Start: 09-05-2024 End: 09-05-2024 ambulatory JULIAN THAKUR Facility:[facility] Start: 09-05-2024 End: 09-05-2024 Patient encounter procedure Adeel King [place].PULP BLEACHER Work Phone: [facility] Comment on above: Sinobronchitis (Prim wesley Dx); Rhonchi; Exposure to pneumonia Start: 04-08-2024 End: 04-08-[address] JULIAN THAKUR DO Facility:[facility] Start: 04-08-2024 End: 04-08-[address] JULIAN THAKUR DO [facility] Start: 01-05-2023 End: 01-05-2023 Patient encounter procedure PRASANTH MCKEON MD [facility] Start: 11-07-2022 End: 11-07-[address] JULIAN THAKUR DO [facility] Start: 10-12-2022 End: 10-12-[address] JULIAN THAKUR DO [facility] Start: 10-15-2021 End: 10-15-[address] JULIAN THAKUR DO [facility] Procedures Date Procedure Procedure Detail Performing Clinician Start: 09-05-2024 Radiologic exam ches t 2 views Adeel Goldstein APRN.PULP BLEACHER Work Phone: Start: 05-12-2015 Lipid 1996 panel - S jessa or Plasma Adeel Goldstein APRN.PULP BLEACHER Work Phone: Start: 05-07-2015 Colonoscopy Adeel fernandez CUPOLA LINER.PULP BLEACHER Work Phone: None (qualifier value) DR JIN THAKUR DO Plan of Treatment Date Care Activity Detail Author Start: 04-10-2027 Screening for malign ant neoplasm of colon Cologuard (FIT-DNA) [facility] Start: 07-07-2024 Covid-19 Vaccine ( season) Covid-19 Vaccine () [facility] Start: 07-07-2024 Influenza vaccination Influenza Vacc ine (#1) [facility] Start: 04-11-2024 Screening for malign ant neoplasm of colon Colorectal Cancer Screening [facility] Start: 11-06-2023 Advance Directive Discussion Advance Directive Discussion [facility] Start: 12-28-2023 RSV Vaccine (1 - 1-d ose 75+ series) RSV Vaccine (1 - 1-dose 75+ series) [facility] Start: 05-12-2020 Lipid panel Lipid Screening [facility] Start: 05-07-2020 Screening for malign ant neoplasm of colon Colonoscopy [facility] Start: 05-12-2018 Diabetes Screening Diabetes Screenin g [facility] Start: 1993 Screening for malign ant neoplasm of colon [facility] Start: 1967 Urine microalbumin profile DTa P,Tdap,Td Vaccine (1 - Tdap) [facility] Start: 1966 Anxiety Screening Anxiety Screening [facility] Start: 1966 Depression Screening Depression Scre ening [facility] Start: 1966 Hepatitis C screening Hepatitis C Sc sunny [facility] Immunizations Immunization Date Immunization Notes Care Provider Nura sifuentes 11-16-2022 influenza (aIIV4) vaccine, age 65+ yr, quadrivalent, PF (FLUAD QUAD) Adeel Goldstein APRN.PULP BLEACHER Work Phone: [facility] 11-16-2022 influenza, high dose seasonal, preservative-free PRASANTH MCKEON MD [facility] 11-16-2022 influenza virus vacc ine, unspecified formulation Adeel Goldstein APRN.PULP BLEACHER Work Phone: [facility] 10-21-2021 influenza, high dose seasonal, preservative-free; Translations: [Fluad Quadrivalent PF ] DR JULIAN THAKUR DO [facility] 10-21-2021 influenza (aIIV4) vaccine, age 65+ yr, quadrivalent, PF (FLUAD QUAD) Adeel Goldstein APRN.PULP BLEACHER Work Phone: [facility] 09-03-2020 influenza, injectabl e, quadrivalent, preservative free; Translations: [Fluarix PF Quadrivalent ] DR JULIAN THAKUR DO [facility] 08-12-2019 influenza virus vacc ine, unspecified formulation DR JULIAN THAKUR DO [facility] 08-12-2019 Influenza, injectabl e, Madin [place] Canine Kidney, preservative free, quadrivalent Adeel Triston CUPOLA LINER.PULP BLEACHER Work Phone: [facility] 09-17-[address] JULIAN THAKUR DO [facility] 08-20-2018 influenza virus vacc ine, unspecified formulation DR JULIAN THAKUR DO [facility] 08-20-2018 Seasonal trivalent influenza vaccine, adjuvanted, preservative free Adeel Triston CUPOLA LINER.PULP BLEACHER Work Phone: [facility] 06-04-2018 pneumococcal polysaccharide vaccine, [address] JULIAN THAKUR DO [facility] 02-07-2018 pneumococcal conjuga te vaccine, [address] JULIAN THAKUR DO [facility] 02-07-[address] JULIAN THAKUR DO [facility] 09-18-2017 influenza virus vacc ine, unspecified formulation DR JULIAN THAKUR DO [facility] 09-18-2017 Seasonal trivalent influenza vaccine, adjuvanted, preservative free Adeel Triston CUPOLA LINER.PULP BLEACHER Work Phone: [facility] 07-07-2016 influenza virus vacc ine, unspecified formulation DR JULIAN THAKUR DO [facility] 07-07-2016 influenza, high dose seasonal, preservative-free Adeel Goldstein CUPOLA LINER.PULP BLEACHER Work Phone: [facility] 05-15-2016 pneumococcal conjuga te vaccine, [address] JULIAN THAKUR DO [facility] 07-21-2015 influenza virus vacc ine, unspecified formulation DR JULIAN THAKUR DO [facility] 07-21-2015 influenza, seasonal, injectable, preservative free Adeel Goldstein CUPOLA LINER.PULP BLEACHER Work Phone: [facility] 04-08-2015 pneumococcal polysaccharide vaccine, [address] JULIAN THAKUR DO [facility] 12-07-2014 measles, mumps and rubella virus vaccine Adeel Goldstein C[employer]OLA LINER.PULP BLEACHER Work Phone: [facility] 12-07-2014 measles/mumps/rubell a virus vaccine DR JULIAN THAKUR DO [facility] 08-15-2014 zoster vaccine, live DR LILLIAN THAKUR DO [facility] 07-12-2014 influenza virus vacc ine, unspecified formulation DR JULIAN THAKUR DO [facility] 07-12-2014 influenza, injectabl e, quadrivalent, preservative free Adeel Goldstein CUPOLA LINER.PULP BLEACHER Work Phone: [facility] 07-12-2014 zoster vaccine, live DR LILLIAN THAKUR DO [facility] 07-05-2011 influenza virus vacc ine, unspecified formulation DR JULIAN THAKUR DO [facility] 07-05-2011 influenza, injectabl e, quadrivalent, preservative free Adeel Goldstein CUPOLA LINER.PULP BLEACHER Work Phone: [facility] 10-20-2009 novel influenza-H1N1 -09, preservative-free, injectable Adeel Goldstein C[employer]OLA LINER.PULP BLEACHER Work Phone: [facility] 09-17-2009 influenza virus vacc ine, whole virus Adeel Goldstein CUPOLA LINER.PULP BLEACHER Work Phone: [facility] Payers Date Payer Category Payer Medicare [id number] 2025 Self-pay 2024 Private Health Insurance [id number] 2023 Medicaid [id number] 2023 Unknown ANTHEM BLUE CROS S AND BLUE SHIELD ANTHEM MEDICARE ADVANTAGE HMO [id number] 2023-Present [phone] [address] [place] [address] HMO [id number] 2023 Medicaid [id number] 2023 Unknown [id number] 2022 Private Health Insurance ed1 [id number] 1950 Unknown [id number] 1950 Unknown [id number] 1950 Unknown [id number] Social History Date Type Detail Facility Start: 03-02-2020 End: 09-05-2024 Ex-smoker (finding) [facility] Comment on above: No Tobacco/Smoke Exp osure Sex Assigned At Female [facility] [place] Start: 1971 End: 06-08-2000 History of tobacco use Current smoker [facility] Start: 1971 End: 06-08-2000 History of tobacco use Cigarette Smoker [facility] Start: 09-05-2024 Cigarettes smoked current (pack per day) - Reported 0.2 [facility] Start: 09-05-2024 Tobacco use and exposure Smoke less tobacco non-user [facility] Start: 09-05-2024 Alcoholic beverage intake Current non-drinker of alcohol (finding) [facility] Start: 09-05-2024 Tobacco use panel [facility] Start: 09-05-2024 Tobacco Comment Father smoked in childhood home until patient's age 3. Has shared home with many smokers in adulthood. [facility] Start: 06-08-2015 Alcohol Comment Quit about 1999. [facility] Start: 1950 Sex assigned at Not on file [facility] Sexual Orientation [facility] Start: 05-01-2019 Sex Female (finding) [facility] Clinical Notes 01-05-2023 to 09-05-2024 Denise Guo RT(R) - 09/05/2024 11:10 AM Adeel Monroe APRN.PULP BLEACHER - 09/05/2024 10:44 AM EDTLaboratoryRadiologyRadiologyLaboratoryRadiologyLaboratory Note Date & Type Note Facility 09-05-2024 History of Present illness Narrative Radiology Service Progress Note PATIENT NAME: Sha Mitchell DATE OF SERVICE: September 05, 2024 TIME: 11:03 AM PATIENT IDENTITY VERIFICATION COMPLETED USING TWO (2) IDENTIFIERS: Name and Date of confirmed by patient verbally. FALL SCREENING: Has the patient had 2 falls in the last year or 1 fall with injury or currently using an Ambulatory Assistive Device (Walker, Cane, Wheelchair, Crutches, etc.)? No PATIENT GENDER DATA: Female. status: : No status: NO. PATIENT RELEVANT IMPLANT DATA REVIEWED: Not Applicable PATIENT PRESENTS WITH AN IMPLANTABLE OR ATTACHED CARETAKER: No RADIOLOGY DEPARTMENT: General X-ray: Exam(s) Completed: Chest X-Ray PERIPHERAL IV DATA: Not applicable SIGNED BY: RT Jimmy(R) September 05, 2024 11:03 AM documented in this encounter [facility] 09-05-2024 Note HNO ID: [id number] Author: DENISE GUO RT(R) Service: Radiology Author Type: Technologist Type: Progress Notes Filed: 09/05/2024 11:12 Note Text: Radiology Service Progress Note PATIENT NAME: Sha Mitchell DATE OF SERVICE: September 05, 2024 TIME: 11:03 AM PATIENT IDENTITY VERIFICATION COMPLETED USING TWO (2) IDENTIFIERS: Name and Date of confirmed by patient verbally. FALL SCREENING: Has the patient had 2 falls in the last year or 1 fall with injury or currently using an Ambulatory Assistive Device (Walker, Cane, Wheelchair, Crutches, etc.)? No PATIENT GENDER DATA: Female. status: : No status: NO. PATIENT RELEVANT IMPLANT DATA REVIEWED: Not Applicable PATIENT PRESENTS WITH AN IMPLANTABLE OR ATTACHED CARETAKER: No RADIOLOGY DEPARTMENT: General X-ray: Exam(s) Completed: Chest X-Ray PERIPHERAL IV DATA: Not applicable SIGNED BY: RT Jimmy(R) September 05, 2024 11:03 AM [facility] 09-05-2024 Note HNO ID: [id number] Author: ADEEL GOLDSTEIN APRN.PULP BLEACHER Service: ? Author Type: Nurse Practitioner Type: Progress Notes Filed: 09/05/2024 11:52 Note Text: Subjective HPI HPI Sha Mitchell is a 73 year old female who presents today for CC of cough, fever, congestion, body aches. This started 4 days ago. Has tried otc medication for relief. Symptoms are worsened by nothing. Risk factors sick exposures at home/pneumonia. .Patient presents with: Cough: Chest congestion, fever, chills, bodyaches, head and sinus pain, chest pressure and pain x 4 days PAST MEDICAL HISTORY Diagnosis Date Anxiety Arthritis knees Bronchitis Depression Heartburn Morbid obesity with BMI of 40.0-44.9, adult (FORM[facility]LY [facility]) 06/16/2015 06/08/15 BMI: 44.43. Snoring Ulcer stomach PAST SURGICAL HISTORY Procedure Laterality Date COLONOSCOPY FLX DX W/COLLJ SPEC WHEN PFRMD 05/07/15 Colonoscopy ALLERGIES Patient has no known allergies. MEDICATIONS ofloxacin (OCUFLOX) 0.3 % ophthalmic solution Use 1 Drop in the left eye four times daily. oxybutynin (DITROPAN) 5 mg tablet Take 5 mg by mouth once daily. cyclobenzaprine (FLEXERIL) 10 mg tablet Take 1 tablet by mouth three times daily as needed for Muscle Spasm. Omeprazole 40 mg capsule Take 40 mg by mouth once daily. FAMILY HISTORY Problem Relation Age of Onset Heart Father angina Diabetes Maternal Grandmother Hypertension Father Arthritis Mother knees Social History Tobacco Use Smoking status: Former Current packs/day: 0.00 Average packs/day: 0.2 packs/day for 30.6 years (6.1 ttl pk-yrs) Types: Cigarettes Start date: 1969 Quit date: 06/08/2000 Years since quittin.2 Smokeless tobacco: Never Tobacco comments: Father smoked in childhood home until patient's age 3. Has shared home with many smokers in adulthood. Substance Use Topics Alcohol use: No Comment: Quit about 1999. Drug use: No Comment: Prior Pot smoker 20 years, quit 1999. Review of Systems Constitutional: Positive for chills, fever and malaise/fatigue. HENT: Positive for congestion, ear pain and sore throat. Negative for nosebleeds. Respiratory: Positive for cough. Negative for shortness of breath and wheezing. Cardiovascular: Negative for chest pain. Musculoskeletal: Negative for neck pain. Skin: Negative for itching and rash. Objective Blood pressure 161/90, pulse 67, temperature 36.8 ?C (98.3 ?F), resp. rate 20, weight 96.6 kg (212 lb 15.4 oz), SpO2 97%. Physical Exam Constitutional: General: She is not in acute distress. Appearance: She is not toxic-appearing or diaphoretic. HENT: Head: Normocephalic and atraumatic. Right Ear: Hearing, tympanic membrane, ear canal and external ear normal. Left Ear: Hearing, tympanic membrane, ear canal and external ear normal. Nose: Nose normal. Mouth/Throat: Lips: [place]. Mouth: Mucous membranes are moist. Eyes: General: Lids are normal. No scleral icterus. Right eye: No discharge. Left eye: No discharge. Conjunctiva/sclera: Conjunctivae normal. Pupils: Pupils are equal, round, and reactive to light. Neck: Trachea: Trachea normal. Cardiovascular: Rate and Rhythm: Normal rate and regular rhythm. Heart sounds: Normal heart sounds. Pulmonary: Effort: Pulmonary effort is normal. Breath sounds: Examination of the left-lower field reveals rhonchi. Rhonchi present. No decreased breath sounds, wheezing or rales. Musculoskeletal: Cervical back: Normal range of motion and neck supple. Lymphadenopathy: Cervical: No cervical adenopathy. Right cervical: No superficial cervical adenopathy. Left cervical: No superficial cervical adenopathy. Skin: Findings: No rash. Neurological: Mental Status: She is alert and oriented to person, place, and time. ASSESSMENT/PLAN: 1. Sinobronchitis - ICD9: 473.9, 490, ICD10: J32.9, J40 (primary diagnosis) - Will begin treatment with as per antibiotic as written, see orders - Supportive care with plenty of fluids, rest, and analgesia prn. - Follow up in 3-5 days if symptoms persist or worsen. - DOXYCYCLINE MONOHYDRATE 100 MG TABLET 2. Rhonchi - ICD9: 786.7, ICD10: R09.89 - XR CHEST 2V FRONTAL/LAT 3. Exposure to pneumonia - ICD9: V01.89, ICD10: Z20.89 - DOXYCYCLINE MONOHYDRATE 100 MG TABLET IMPRESSION: No acute radiographic abnormality. Dictated by : MD Adeel BLAKE APRN.[facility] 09-05-2024 History of Present illness Narrative Subjective HPI HPI Sha Mitchell is a 73 year old female who presents today for CC of cough, fever, congestion, body aches. This started 4 days ago. Has tried otc medication for relief. Symptoms are worsened by nothing. Risk factors sick exposures at home/pneumonia. .Patient presents with: Cough: Chest congestion, fever, chills, bodyaches, head and sinus pain, chest pressure and pain x 4 days PAST MEDICAL HISTORY Diagnosis Date Anxiety Arthritis knees Bronchitis Depression Heartburn Morbid obesity with BMI of 40.0-44.9, adult (FORMERLY [facility]) 06/16/2015 06/08/15 BMI: 44.43. Snoring Ulcer stomach PAST SURGICAL HISTORY Procedure Laterality Date COLONOSCOPY FLX DX W/COLLJ SPEC WHEN PFRMD 05/07/15 Colonoscopy ALLERGIES Patient has no known allergies. MEDICATIONS ofloxacin (OCUFLOX) 0.3 % ophthalmic solution Use 1 Drop in the left eye four times daily. oxybutynin (DITROPAN) 5 mg tablet Take 5 mg by mouth once daily. cyclobenzaprine (FLEXERIL) 10 mg tablet Take 1 tablet by mouth three times daily as needed for Muscle Spasm. Omeprazole 40 mg capsule Take 40 mg by mouth once daily. FAMILY HISTORY Problem Relation Age of Onset Heart Father angina Diabetes Maternal Grandmother Hypertension Father Arthritis Mother knees Social History Tobacco Use Smoking status: Former Current packs/day: 0.00 Average packs/day: 0.2 packs/day for 30.6 years (6.1 ttl pk-yrs) Types: Cigarettes Start date: 1969 Quit date: 06/08/2000 Years since quittin.2 Smokeless tobacco: Never Tobacco comments: Father smoked in childhood home until patient's age 3. Has shared home with many smokers in adulthood. Substance Use Topics Alcohol use: No Comment: Quit about 1999. Drug use: No Comment: Prior Pot smoker 20 years, quit 1999. Review of Systems Constitutional: Positive for chills, fever and malaise/fatigue. HENT: Positive for congestion, ear pain and sore throat. Negative for nosebleeds. Respiratory: Positive for cough. Negative for shortness of breath and wheezing. Cardiovascular: Negative for chest pain. Musculoskeletal: Negative for neck pain. Skin: Negative for itching and rash. Objective Blood pressure 161/90, pulse 67, temperature 36.8 C (98.3 F), resp. rate 20, weight 96.6 kg (212 lb 15.4 oz), SpO2 97%. Physical Exam Constitutional: General: She is not in acute distress. Appearance: She is not toxic-appearing or diaphoretic. HENT: Head: Normocephalic and atraumatic. Right Ear: Hearing, tympanic membrane, ear canal and external ear normal. Left Ear: Hearing, tympanic membrane, ear canal and external ear normal. Nose: Nose normal. Mouth/Throat: Lips: [place]. Mouth: Mucous membranes are moist. Eyes: General: Lids are normal. No scleral icterus. Right eye: No discharge. Left eye: No discharge. Conjunctiva/sclera: Conjunctivae normal. Pupils: Pupils are equal, round, and reactive to light. Neck: Trachea: Trachea normal. Cardiovascular: Rate and Rhythm: Normal rate and regular rhythm. Heart sounds: Normal heart sounds. Pulmonary: Effort: Pulmonary effort is normal. Breath sounds: Examination of the left-lower field reveals rhonchi. Rhonchi present. No decreased breath sounds, wheezing or rales. Musculoskeletal: Cervical back: Normal range of motion and neck supple. Lymphadenopathy: Cervical: No cervical adenopathy. Right cervical: No superficial cervical adenopathy. Left cervical: No superficial cervical adenopathy. Skin: Findings: No rash. Neurological: Mental Status: She is alert and oriented to person, place, and time. ASSESSMENT/PLAN: 1. Sinobronchitis - ICD9: 473.9, 490, ICD10: J32.9, J40 (primary diagnosis) - Will begin treatment with as per antibiotic as written, see orders - Supportive care with plenty of fluids, rest, and analgesia prn. - Follow up in 3-5 days if symptoms persist or worsen. - DOXYCYCLINE MONOHYDRATE 100 MG TABLET 2. Rhonchi - ICD9: 786.7, ICD10: R09.89 - XR CHEST 2V FRONTAL/LAT 3. Exposure to pneumonia - ICD9: V01.89, ICD10: Z20.89 - DOXYCYCLINE MONOHYDRATE 100 MG TABLET IMPRESSION: No acute radiographic abnormality. Dictated by : MD Adeel BLAKE APRN.PULP BLEACHER documented in this encounter [facility] 01-05-2023 Note ORIGINAL EXAMINATION: HIGH RESOLUTION CT IMAGES OF THE CHEST WITHOUT CONTRAST, HIGH RESOLUTION 01/05/2023 TECHNIQUE: CT of the chest was performed without the administration of intravenous contrast. High resolution CT imaging was performed of the lungs. Multiplanar reformatted images are provided for review. Automated exposure control, iterative reconstruction, and/or weight based adjustment of the mA/kV was utilized to reduce the radiation dose to as low as reasonably achievable. High resolution CT images were performed of the lungs in prone inspiration. COMPARISON: 10/12/2022, earlier HISTORY: ORDERING SYSTEM PROVIDED HISTORY: Reason for Exam: RESTRICTIVE AIRWAY DISEASE FINDINGS: MEDIASTINUM: No mediastinal lymphadenopathy given lack of IV contrast. Mild cardiomegaly. No pericardial effusion.The great vessels are normal course and caliber. Coronary and mild aortic atherosclerosis. Common branch pattern of the innominate common carotid arteries. HRCT Findings: No honeycombing. Similar mosaic attenuation. Dependent atelectasis. Unchanged minimal basilar bronchiectasis. AIRWAYS/LUNGS/PLEURA: The trachea and mainstem bronchi are patent. There is no focal consolidation. Stable 3 mm subpleural nodules in the left upper and right middle lobes (series 2 images 25 and 31) with the calcified right middle lobe micronodule. No pleural effusion or pneumothorax. UPPER ABDOMEN: Cholelithiasis. Right Bochdalek's hernia contains part of the right hepatic lobe and adrenal gland. Fat containing left Bochdalek's hernia. Small hiatal hernia. SOFT TISSUES/BONES: No acute soft tissue or bony abnormality. No aggressive lytic or sclerotic lesions. Degenerative spine with slight dextrocurvature centered at T5, which may be positional. IMPRESSION: Mosaic attenuation is probably indicative of small airways trapping, which raises the possibility of chronic hypersensitivity pneumonitis. Mild basilar bronchiectasis is unchanged. Interpreted by: Lalo Cui Preliminary Report By: Lalo Cui Electronically signed By Lalo Cui Dictated Date: 01/05/2023 9:41:06 AM Prelim Date: 01/05/2023 11:02:49 AM Sign Date: 01/05/2023 11:02:49 AM [facility] Note ORIGINAL EXAMINATION: HIGH RESOLUTION CT IMAGES OF THE CHEST WITHOUT CONTRAST, HIGH RESOLUTION 01/05/2023 TECHNIQUE: CT of the chest was performed without the administration of intravenous contrast. High resolution CT imaging was performed of the lungs. Multiplanar reformatted images are provided for review. Automated exposure control, iterative reconstruction, and/or weight based adjustment of the mA/kV was utilized to reduce the radiation dose to as low as reasonably achievable. High resolution CT images were performed of the lungs in prone inspiration. COMPARISON: 10/12/2022, earlier HISTORY: ORDERING SYSTEM PROVIDED HISTORY: Reason for Exam: RESTRICTIVE AIRWAY DISEASE FINDINGS: MEDIASTINUM: No mediastinal lymphadenopathy given lack of IV contrast. Mild cardiomegaly. No pericardial effusion.The great vessels are normal course and caliber. Coronary and mild aortic atherosclerosis. Common branch pattern of the innominate common carotid arteries. HRCT Findings: No honeycombing. Similar mosaic attenuation. Dependent atelectasis. Unchanged minimal basilar bronchiectasis. AIRWAYS/LUNGS/PLEURA: The trachea and mainstem bronchi are patent. There is no focal consolidation. Stable 3 mm subpleural nodules in the left upper and right middle lobes (series 2 images 25 and 31) with the calcified right middle lobe micronodule. No pleural effusion or pneumothorax. UPPER ABDOMEN: Cholelithiasis. Right Bochdalek's hernia contains part of the right hepatic lobe and adrenal gland. Fat containing left Bochdalek's hernia. Small hiatal hernia. SOFT TISSUES/BONES: No acute soft tissue or bony abnormality. No aggressive lytic or sclerotic lesions. Degenerative spine with slight dextrocurvature centered at T5, which may be positional. IMPRESSION: Mosaic attenuation is probably indicative of small airways trapping, which raises the possibility of chronic hypersensitivity pneumonitis. Mild basilar bronchiectasis is unchanged. Interpreted by: Lalo Cui Preliminary Report By: Lalo Cui Electronically signed By Lalo Cui Dictated Date: 01/05/2023 9:41:06 AM Prelim Date: 01/05/2023 11:02:49 AM Sign Date: 01/05/2023 11:02:49 AM Ordering Provider: PRASANTH MCKEON [facility] Evaluation + Plan note Future Appointments Appointment Date:10/21/2021 05:00:00 PM Scheduled Provider:JULIAN THAKUR DO Location:[facility] Appointment Type:PC Wellness Medicare [facility] Evaluation + Plan note Future Appointments Appointment Date:11/16/2022 08:30:00 AM Scheduled Provider:JULIAN THAKUR DO Location:[facility] Appointment Type: Wellness Medicare Future Scheduled TestsThyroid Stimulating Hormone 10/12/22A1C Hemoglobin 10/12/22Complete Blood Count 10/12/22Lipid Profile 10/12/22Complete Metabolic Panel 10/12/22MA Mammo Screening Bilateral w/ Aly 11/08/21MA Mammo Screening Bilateral w/ Aly 10/12/22XR Knee 3 Views Left 10/21/21XR Spine Lumbar AP/LAT 10/21/21 [facility] Evaluation + Plan note Future Appointments Appointment Date:11/16/2022 08:30:00 AM Scheduled Provider:JULIAN THAKUR DO Location:[facility] Appointment Type: Wellness Medicare Future Scheduled TestsMA Mammo Screening Bilateral w/ Aly 11/08/21 [facility] Evaluation + Plan note Future Scheduled [id number] Hemoglobin 11/16/23Lipid Profile 11/16/23Complete Metabolic Panel 11/16/23 [facility] Evaluation + Plan note Future Appointments Appointment Date:01/13/2025 02:00:00 PM Scheduled Provider:JULIAN THAKUR DO Location:[facility] Appointment Type:PC Wellness Medicare Future Scheduled TestsMA Mammo Screening Bilateral w/ Aly 01/12/24 [facility] Evaluation + Plan note Future Appointments Appointment Date:07/11/2025 02:00:00 PM Scheduled Provider:JULIAN THAKUR DO Location:[facility] Appointment Type:[facility] Future Scheduled [id number] Hemoglobin 07/16/25Complete Metabolic Panel 07/16/25 [facility] Evaluation note Diagnosis Sinobronchitis- Primary Unspecified sinusitis (chronic) Rhonchi Abnormal chest sounds Exposure to pneumonia Contact with or exposure to other viral diseases documented in this encounter [facility] course Narrative No data available for this section [facility] Hospital Discharge instructions No data available for this section [facility] Progress note No data available for this section [facility] Summary Purpose Family History No Family History Records Found Advance Directives No Advanced Directives Records FoundNo Advanced Directives Records FoundNo Advanced Directives Records FoundNo Advanced Directives Records Found Additional Source Comments Care Team (unrecognized sect ion and content) Care Team Personnel Name: JULIAN THAKUR DO Position: P4 Physician - Primary Care Member Role: Primary Care Physician Address: Address: [facility] [address] Care Team Related Persons Name: ZAC DESTINY Name: VIVIANA FRANK Name: LUCIO TUTTLE Care Team Personnel Name: JULIAN THAKUR DO Position: P4 Physician - Primary Care Member Role: Primary Care Physician Address: Address: [facility] [address] Care Team Related Persons Name: DESTINY FRANK Name: VIVIANA FRANK Name: LUCIO TUTTLE Care Team Personnel Name: JULIAN THAKUR DO Position: P4 Physician - Primary Care Member Role: Primary Care Physician Address: Address: [facility] [address] Care Team Related Persons Name: DESTINY FRANK Name: VIVIANA FRANK Name: LUCIO TUTTLE Patient Care team informatio n (unrecognized section and content) Director Of Recruitment And Admissions Relationship Specialty Start Date End Date Julian Thakur DO [address] [place] [address] PCP - General Family Medicine 09/05/24 Director Of Recruitment And Admissions Relationship Specialty Start Date End Date Julian Thakur DO [address] [facility] [place] [address] PCP - General Family Medicine 09/05/24 INFORMATION SOURCE (unrecogn ized section and content) DATE CREATED AUTHOR 04/09/[address] [facility] ([place]) DATE CREATED AUTHOR AUTHOR'S ORGANIZ ATION 09/07/2024 [facility] DATE CREATED AUTHOR AUTHOR'S ORGANIZ ATION 04/20/2025 [facility] DATE CREATED AUTHOR AUTHOR'S ORGANIZ ATION 09/07/2025 [facility] Source Comments (unrecognize d section and content) In the event this informatio n is protected by the Federal Confidentiality of Alcohol and Drug Abuse Patient Records regulations: The Federal rules restrict any use of the information to criminally investigate or prosecute any alcohol or drug abuse patient.[facility] the event this information is protected by the Federal Confidentiality of Alcohol and Drug Abuse Patient Records regulations: The Federal rules restrict any use of the information to criminally investigate or prosecute any alcohol or drug abuse patient.[facility] Reason for Visit (unrecogniz ed section and content) Reason Comments Cough Chest congestion, fe yovany, chills, bodyaches, head and sinus pain, chest pressure and pain x 4 days FOR RECORDS PERTAINING TO PATIENTS WHO ARE OR HAVE BEEN ENROLLED IN A CHEMICAL DEPENDENCY/SUBSTANCEABUSE PROGRAM, SOME INFORMATION MAY BE OMITTED. This clinical summary was aggregated from multiple sources. Caution should be exercised in using it in the provision of clinical care. This summary normalizes information from multiple sources, and as a consequence, information in this document may materially change the coding, format and clinical context of patient data. In addition, data may be omitted in some cases. CLINICAL DECISIONS SHOULD BE BASED ON THE PRIMARY CLINICAL RECORDS. [employer] [facility]. provides no warranty or guarantee of the accuracy or completeness of information in this document.
[2025-10-09] MEDS: Lactated Ringers 1,000 ML 15 ML IV (07:51)
--- NOTE | 2025-10-09 07:59 | PRE.ANES_ITS ---
ASA Classification* ASA Classification ASA Classification: 2 Assessment & Plan Anesthesia* Anesthesia Assessment Anesthesia Assessment: Discussed sedation and/or anesthesia options, risks, benefits, and alternatives with patient/parents/legal guardian/POA. Questions invited. The patient/parents/legal guardian/POA seems to understand and agrees to proceed with anesthesia plan. Reviewed the physical assessment, medical history, allergy history and patient home medications list prior to surgery/procedure/anesthetic and documented any changes. Performed airway and anesthesia risk assessments. Anesthesia Type Anesthesia Type: MAC History Source History Obtained from:: Patient and Chart Anesthesia Focused Assessment* Temperature: 98.7 F Pulse Rate: 72 Blood Pressure: 124/83 Respiratory Rate: 16 Pulse Ox: 98 Oxygen Delivery Method: Room Air Airway Assessment Mouth opens: >3 cm Mallampati Score: I Teeth Condition: Dentures (upper and lower; removed) Neck Range of motion (ROM): Full ROM Labs Anesthesia Preop lab: CBC CHEMISTRY COAG Pre-Assessment Diagnosis/Proposed Procedure Planned Operative Procedure(s): EGD Anesthesia History Anesthesia History - insurance underwriter: Anesthesia History - insurance underwriter Hx Hospitalization No 10/06/25 11:01 Any Problems With Anesthesia No 10/06/25 11:01 Cholinesterase deficiency No 10/06/25 11:01 You/Your Family Experience No 10/06/25 11:01 fever (hyperthermia) with Relationship Recent Exposure to Contagious Disease Does patient have nerve No 10/06/25 11:01 stimulator Patient instructed to have device shut off --Does patient have Pacemaker No 10/09/25 07:42 or ICD? When Was Last Pacemaker Check QUESTION #4 FULL TEXT: You/Your Family Experience fever (hyperthermia) with Anesthesia Last Oral Intake Last Oral intake: Last Oral Intake NPO since 18:00 10/09/25 07:42 Meds taken in AM with sips of No 10/09/25 07:42 water? Meds patient instructed to take am of surgery PONV PONV - insurance underwriter: PONV - insurance underwriter Female Yes 10/06/25 11:01 HX of Motion Sickness No 10/06/25 11:01 HX of N/V After Surgery No 10/06/25 11:01 Non-Smoker Yes 10/06/25 11:01 Duration of Surgery greater No 10/06/25 11:01 than 60 minutes Number of Risk Factors 2 10/06/25 11:01 PONV Score Moderate Risk 10/06/25 11:01 Height & Weight Height & Weight: Anesthesia: Height & Weight Height 5 ft 2 in 10/09/25 07:42 Weight: 96.6 kg 10/09/25 07:42 Body Mass Index (BMI) 38.9 10/09/25 07:42 Respiratory Assessment Respiratory Assessment - insurance underwriter: Respiratory Tract Infection Hx - insurance underwriter Hx Respiratory Tract Infection No 10/06/25 11:01 STOP Sleep Apnea STOP Sleep Apnea - insurance underwriter: STOP Sleep Apnea - insurance underwriter Hx Hypertension No 10/06/25 11:01 Hx Sleep Apnea No 10/06/25 11:01 CPAP BIPAP Do you snore loudly (louder No 10/06/25 11:01 than talking or can be heard Do you often feel tired/ No 10/06/25 11:01 fatigued/ sleepy during daytime? Has anyone observed you stop No 10/06/25 11:01 breathing during sleep? STOP Results Negative 10/06/25 11:01 QUESTION #5 FULL TEXT : Do you snore loudly (louder than talking or can be heard through closed doors)? Tobacco Use History Tobacco Use History - insurance underwriter: Tobacco Use History - insurance underwriter Tobacco Use Smoking Status Former smoker 10/06/25 11:01 Hx Tobacco Use No 10/06/25 11:01 Years Smoking Packs Smoked per Day Smoking Cessation Date was No - quit smoking greater 10/06/25 11:01 within the last 15 years than 15 years ago Hx Smoking Cessation Date Hx Smoking Cessation Counseling Hematologic Medial History Hematologic Hx - insurance underwriter: Hematologic Medical Hx - documentation clerk Hx of Blood Transfusion No 10/06/25 11:01 Hx of Transfusion in last 3 No 10/06/25 11:01 Months Date of Last Transfusion (if within last 3 months) Ever experience any problems No 10/06/25 11:01 with transfusion(s)? Specify any problems Hx of Preganancy in last 3 No 10/06/25 11:01 Months Nurse Filling Out Transfusion [email or web address] 10/06/25 11:01 & Questions: Date: 10/06/25 10/06/25 11:01 Time: 11:03 10/06/25 11:01 Patient unable to answer at this time (ie. confused, unrespo /Reproduction History /Reproductive History - insurance underwriter: /Reproductive Hx- insurance underwriter Hx Now Gestational Age (in weeks): EDC: Hx Hx Para Hx Section SAB Does the father of the baby or his family experience fever w Father of the baby Malignant Hypertension history comment Active Medications Active Medications: Current Medications Generic Name Dose Route Start Last Admin Trade Name Freq PRN Reason Stop Dose Admin Lactated Ringer's 1,000 mls @ 15 mls/hr 10/09/25 07:45 10/09/25 07:51 IV 15 mls/hr .Q48H GAVIN Administration PFSH Medical History Loss of hearing Wears hearing aid Wears dentures Wears glasses Anxiety Marijuana use Incontinence of urine Gastric reflux Chronic cough Non-smoker History of pain when walking Cardiology follow-up encounter Urinary incontinence, mixed Former smoker Osteoarthritis of left knee Morbid obesity Restrictive lung disease GERD (gastroesophageal reflux disease) Home Medications Medication Instructions Recorded Last Taken Type omeprazole 40 mg capsule,delayed 40 mg PO QDAY 5 Unknown History release Allergy/AdvReac Type Severity Reaction Status Date / Time No Known Allergies Allergy Verified 10/09/25 07:42 Family History Maternal Grandmother Diabetes Father Heart disease Surgical History History of cardiac catheterization Social History Smoking Status: Former smoker quit date: 03/02/20 Review of Systems (Anesthesia) ROS Narrative System reviewed and no additional complaints, except as documented.
--- NOTE | 2025-10-09 08:30 | EGD_PTH ---
PATIENT: SHA GORMAN LOC: EN U#:[id number] AGE/SX: 74/F ROOM: RE10/09/[address]: Dr. Aris Ellis DO : 1950 BED: DIS: 10/09/2025 SPEC #: [id number] RECD: 10/09/25 09:34 STATUS: VIDYA ANGELIA #: [id number] RUSTY: 10/09/25 08:[address]: Aris Ellis DEPT: SURGICAL PATHOLOGY RECD BY: Leona Brandon ENTERED: 10/09/25 13:43 SP TYPE: EGD BIOPSY CARL DR: Dr. Fred Thakur DO Tissues: A - Esophageal mucous membrane B - Duodenum, NOS Procedures: Surgery Specimen Level IV HEADER OPERATION: EGD, biopsy PRE-OP DIAGNOSIS: Gastroesophageal reflux disease TISSUE SUBMITTED: A. Distal esophagus, B. Duodenum MICROSCOPIC DIAGNOSIS A. Esophagus, distal, biopsies: - Cardiac mucosa with focal goblet cell metaplasia without dysplasia - No squamous epithelium is identified B. Small intestine, duodenum: * Benign duodenal mucosa without active inflammation MICROSCOPIC DESCRIPTION Slides are reviewed. GROSS DESCRIPTION A. Received in fixative is one container labeled with the patient's name and designated "Distal esophagus biopsy." The specimen consists of two irregular fragments of crane tissue that measure 0.3 and 0.4 cm. The specimen is totally submitted in one cassette. B. Received in fixative is one container labeled with the patient's name and designated "Duodenum biopsy." The specimen consists of two irregular fragments of crane tissue that measure 0.3 and 0.4 cm. The specimen is totally submitted in one cassette. [place] 10/09/2025 CPT:76844k3
--- NOTE | 2025-10-09 08:57 | PCM.HP.STD ---
[facility] - General General Date of Admission: 10/09/25 Date of Service: 10/09/25 Chief Complaint: GERD, abdominal pain, bloating [facility] Narrative CINDY GORMAN, is a 74 F who presents [Chief Complaint: GERD Patient referred from her primary care provider due to worsening GERD symptoms over the past month. Patient has a long history of GERD and reflux and has been on omeprazole for over 10 years. Last EGD was over 10 years ago. Over the past month she has had heartburn after eating and nausea in the mornings. She is vomiting at least once per week. She has epigastric pain, early satiety and bloating. Over the last 6 months due to lack of appetite she has lost about 20 pounds without trying. Patient recently discontinued meloxicam after being on it for a year due to joint pain. She denies black or tarry stool. No past medical history of GI bleeding. She denies any recent changes in her bowel habits. When she was taking oxybutynin for urinary incontinence she was more constipated but this has resolved. Last colonoscopy was over 10 years ago at the [facility]. She denies family history of colon cancer. She did a Cologuard test about a month ago which was negative. [facility] Medical History Loss of hearing Wears hearing aid Wears dentures Wears glasses Anxiety Marijuana use Incontinence of urine Gastric reflux Chronic cough Non-smoker History of pain when walking Cardiology follow-up encounter Urinary incontinence, mixed Former smoker Osteoarthritis of left knee Morbid obesity Restrictive lung disease GERD (gastroesophageal reflux disease) Home Medications Medication Instructions Recorded Last Taken Type omeprazole 40 mg capsule,delayed 40 mg PO QDAY 08/07/25 Unknown History release Allergy/AdvReac Type Severity Reaction Status Date / Time No Known Allergies Allergy Verified 10/09/25 07:42 Family History Maternal Grandmother Diabetes Father Heart disease Surgical History History of cardiac catheterization Social History Smoking Status: Former smoker quit date: 03/02/20 ROS Constitutional Constitutional: Denies fatigue, fever(s), poor appetite, weight gain or weight loss Gastrointestinal Gastrointestinal: Denies belching, bloating, change in bowel habits, change in stool character, chewing difficulty, coffee ground emesis, constipation, cramping, diarrhea, dyspepsia, dysphagia, early satiety, excessive flatus, fecal incontinence, heartburn, hematemesis, hematochezia, hemorrhoids, loose stools, melena, nausea, odynophagia, rectal bleeding, tenesmus, vomiting or weight changes Vital Signs Vital Signs Vital Signs: 10/09/25 07:42 10/09/25 07:42 10/09/25 07:42 Temperature 98.7 F Temperature Source Temporal Pulse Rate 72 Respiratory Rate 16 Respiratory Pattern Normal Blood Pressure 124/83 H Blood Pressure Mean 96 Blood Pressure Source Monitor Blood Pressure Position Semi-Fowlers Blood Pressure Location Left Arm Baseline BP 124/83 Pulse Ox 98 Oxygen Delivery Method Room Air 10/09/25 08:02 Temperature 98.7 F Temperature Source Pulse Rate 72 Respiratory Rate 16 Respiratory Pattern Blood Pressure 124/83 H Blood Pressure Mean Blood Pressure Source Blood Pressure Position Blood Pressure Location Baseline BP Pulse Ox 98 Oxygen Delivery Method Room Air Weight Weight: 212 lb 15.465 oz Body Mass Index (BMI) 38.9 Physical Exam Const alert, oriented x3, no apparent distress and healthy appearing General Appearance: cooperative GI normal to inspection, nondistended, normoactive bowel sounds, soft to palpation, non-tender and non-distended Percussion: normal to percussion Rectal Exam: deferred Assessment & Plan Assessment/Plan (1) Early satiety: (2) Bloating: (3) Nausea & vomiting: PLAN: Assessment and Plan Assessment and Plan (1) Gastroesophageal reflux disease: Plan: Cindy is a 74-year-old female patient with past medical history of restrictive lung disease (silicosis), joint pain, urinary incontinence and GERD here today for evaluation. Patient with GERD for over 10 years but worsening over the past month. She is now having epigastric pain, nausea, vomiting, early satiety and bloating. Patient endorses a 20 pound weight loss unintentionally over the past 6 months due to lack of appetite.She recently discontinued meloxicam after being on it for a year therefore gastric ulcer is on the differential. Patient will undergo upper endoscopy for evaluation of her GI tract. In the interim she will continue omeprazole 40 mg daily. Pending result we will consider further workup or treatment. - EGD - Continue PPI - Follow-up after procedure Note: Portions of this note may have been selectively carried forward from previous documentation to ensure continuity and accuracy of the clinical record. All imported information has been reviewed and updated as necessary to reflect the current patient status, findings, and clinical decision-making for this encounter. [employer] speech recognition ward secretary software was used to create portions of this document. Sound alike and misspelled words, as well as other ward secretary errors may be contained in the documentation. (2) Nausea & vomiting: Status: Acute (3) Bloating: Status: Acute (4) Early satiety: Status: Acute ]
--- NOTE | 2025-10-09 09:25 | PCM.POST.ANE ---
Anesthesia: Postop Eval I Current Vital Signs Temperature: 97.6 F Pulse Rate: 76 Blood Pressure: 135/101 Respiratory Rate: 16 Pulse Ox: 97 Oxygen Delivery Method: Room Air Assessment Airway patent: Yes Spontaneous unlabored respirations: Yes Mental status: Awake and Calm nausea: No Vomiting: No Anesthesia Complication: No Fluid Hydration Crystalloid volume administer (ml): 600 Total IV fluid infused: 600 Progress Note Anesthesia document: Postop Eval 1 completed: Yes
--- NOTE | 2025-10-09 09:27 | OP.EGD_ITS ---
Patient Name: Cindy Mitchell Procedure Date: 10/09/2025 9:00 AM Date of : 1950 Age: 74 Procedure: Upper GI endoscopy Indications: Epigastric abdominal pain, Functional Dyspepsia, Heartburn, Suspected esophageal reflux Providers: Aris Ellis DO Referring MD: Fred Thakur Medicines: Monitored Anesthesia Care Patient Profile: This is a 74 year old female. Refer to note in patient chart for documentation of history and physical. Patient has symptoms of chronic epigastric abdominal pain, chronic cough, chronic dyspepsia, chronic nausea, chronic regurgitation and chronic throat burning. Complications: No immediate complications. Procedure: Pre-Anesthesia Assessment: - Prior to the procedure, a History and Physical was performed, and patient medications and allergies were reviewed. The patient is competent. The risks and benefits of the procedure and the sedation options and risks were discussed with the patient. All questions were answered and informed consent was obtained. Patient identification and proposed procedure were verified by the physician in the pre-procedure area. Mental Status Examination: alert and oriented. Airway Examination: normal oropharyngeal airway and neck mobility. Respiratory Examination: clear to auscultation. CV Examination: normal. Prophylactic Antibiotics: The patient does not require prophylactic antibiotics. Prior Anticoagulants: The patient has taken no anticoagulant or antiplatelet agents. ASA Grade Assessment: II - A patient with mild systemic disease. After reviewing the risks and benefits, the patient was deemed in satisfactory condition to undergo the procedure. The anesthesia plan was to use monitored anesthesia care (MAC). Immediately prior to administration of medications, the patient was re-assessed for adequacy to receive sedatives. The heart rate, respiratory rate, oxygen saturations, blood pressure, adequacy of pulmonary ventilation, and response to care were monitored throughout the procedure. The physical status of the patient was re-assessed after the procedure. After obtaining informed consent, the endoscope was passed under direct vision. Throughout the procedure, the patient's blood pressure, pulse, and oxygen saturations were monitored continuously. The gastroscope was introduced through the mouth, and advanced to the fourth part of the duodenum. Small bowel enteroscopy was deemed necessary. The upper GI endoscopy was accomplished without difficulty. The patient tolerated the procedure well. Scope In: 9:13:14 AM Scope Out: 9:17:15 AM Total Procedure Duration Time 0 hours 4 minutes 1 second Findings: The Z-line was irregular and was found 40 cm from the incisors. Biopsies were taken with a cold forceps for histology. A medium-sized hiatal hernia was present. Patchy mild inflammation characterized by congestion (edema) was found in the entire duodenum. Biopsies were taken with a cold forceps for histology. Verification of patient identification for the specimen was done. Estimated blood loss was minimal. Impression: - Z-line irregular, 40 cm from the incisors. Biopsied. - Medium-sized hiatal hernia. - Chronic duodenitis. Biopsied. Recommendation: - Discharge patient to home. - Resume previous diet. - Continue present medications. - Await pathology results. Procedure Code(s): --- Professional --- 49675, Small intestinal endoscopy, enteroscopy beyond second portion of duodenum, not including ileum; with biopsy, single or multiple CPT copyright 2021 [employer]. All rights reserved. The codes documented in this report are preliminary and upon cash posting specialist review may be revised to meet current compliance requirements. Aris Ellis DO 10/09/2025 9:27:23 AM This report has been signed electronically. Number of Addenda: 0 Note Initiated On: 10/09/2025 9:00 AM
--- NOTE | 2025-10-09 09:28 | OP.PROVAT_ITS ---
10/09/2025 Fred Thakur Re : Upper GI endoscopy procedure for Cindy Mitchell Adinar Ofe This procedure was performed on October. My impressions and recommendations are as follows: Impressions : - Z-line irregular, 40 cm from the incisors. Biopsied. - Medium-sized hiatal hernia. - Chronic duodenitis. Biopsied. Recommendations : - Discharge patient to home. - Resume previous diet. - Continue present medications. - Await pathology results. My findings are described in the full procedure note, which is enclosed. If I can be of further assistance, please feel free to contact me at . Sincerely, Aris Ellis, 10/09/2025 9:27:23 AM This report has been signed electronically.
--- NOTE | 2025-10-09 10:11 | PCM.POSTANE2 ---
Anesthesia Postop Eval I Sum Postop Eval Completion status Anesthesia document: Postop Eval 1 completed: Yes Anesthesia Postop Eval I Summary Anesthesia Postop Eval I Summary: Anesthesia Postop Eval I: Assessment Summary Airway patent Yes 10/09/25 09:26 [email or web address] Spontaneous unlabored Yes 10/09/25 09:26 [email or web address] respirations Mental status Awake,Calm 10/09/25 09:26 [email or web address] nausea No 10/09/25 09:26 [email or web address] Vomiting No 10/09/25 09:26 [email or web address] Anesthesia Postop Eval I: Fluid Summary Crystalloid volume administer 600 10/09/25 09:26 [email or web address] (ml) Colloids volume administered ( ml) Blood Product volume administered (ml) Total IV fluid infused 600 10/09/25 09:26 [email or web address] Anesthesia Postop Eval I: Summary Notes Anesthesia Complication No 10/09/25 09:26 [email or web address] Anesthesia Complication Comment: Post-operative progress note Anesthesia: Postop Eval II Evaluation Mental status: Awake Pain Level: 0 nausea: No Vomiting: No Complications Anesthesia Complication: No
== END 2025-10-09 09:59 | disposition home or self-care (01) ==
LOC: EN 07:23 → AC 07:24
PROVIDERS: PCP Family Medicine; Referring Provider Family Medicine; Visit Provider Internal Medicine Gastroenterology
PROC: 0DJ08ZZ Inspection of Upper Intestinal Tract, Via Natural or Artificial Opening Endoscopic (ICD-10-PCS; CPT 43235; principal; 2025-10-09 08:25)
DX: K22.70 Barrett's esophagus without dysplasia (principal); K44.9 Diaphragmatic hernia without obstruction or gangrene; K29.80 Duodenitis without bleeding; K21.9 Gastro-esophageal reflux disease without esophagitis; Z87.891 Personal history of nicotine dependence; Z79.899 Other long term (current) drug therapy
CPT/HCPCS: 44361; 88305; J2405